=== PATIENT | male | born 1985 | race Asian ===

== ENCOUNTER 2016-10-20 05:12 | Day surgery (SDC) | payer BC ==
[2016-10-19 09:00] VITALS: BMI 22.8
[2016-10-20] MEDS ORDERED: ROPIVACAINE HCL 0.5% 30ML VIAL ONE (07:30)
[2016-10-20] MEDS ORDERED: MIDAZOLAM HCL 2 MG/2 ML SINGLE DOSE VIAL ONE ×2 (07:32)
--- NOTE | 2016-10-20 07:59 | HP ---
Satellite [facility] - Chief Complaint Chief Complaint: right knee pain - Past Medical History Allergies/Adverse Reactions: Allergies Allergy/AdvReac Type Severity Reaction Status Date / Time No Known Drug Allergies Allergy Verified 10/19/16 09:00 - Current Medications Current Medications: Home Medications Medication Instructions Recorded Oxycodone HCl/Acetaminophen 1 - 2 tab PO Q6H #50 tab MDD 8 10/20/16 [Percocet 5-325 mg Tablet -] Satellite Physical Exam - Physical Examination Vital Signs: Vital Signs Period Temp Pulse Resp BP Sys/Quintero Pulse Ox Last 24 Hr 97.7 F-97.7 F 68-68 20-20 119-119/67-67 99 General Appearance: Well Nourished, Well Developed, Alert & Oriented x3 ENT: Clear Lung: Normal air movement Heart: Regular rate & rhythm Extremities: Other (right knee- + swelling, + ttp, decr rom, + mg, + ant draw, + pivot, nvi MRI + acl rupture) Neurological: Intact, Alert, Oriented Satellite Impression/Plan - Impression/Plan Impression: right knee acl rupture Operative Procedure: right knee arthroscopy with ACL reconstruction using allograft Date to be Performed: 10/20/16
[2016-10-20] MEDS ORDERED: SUCCINYLCHOLINE CHLORIDE 200 MG/10 ML VIAL ONE (08:10)
[2016-10-20] MEDS ORDERED: PROPOFOL 20 ML ONE ×2 (08:10)
[2016-10-20] MEDS ORDERED: ceFAZolin SODIUM 1 GM VIAL IVPB ONE (08:18)
[2016-10-20] MEDS ORDERED: DEXAMETHASONE SOD PHOSPHATE 4 MG/1 ML VIAL ONE (08:22)
[2016-10-20] MEDS ORDERED: KETOROLAC TROMETHAMINE 30 MG/1 ML VIAL ONE (08:22)
[2016-10-20] MEDS ORDERED: LIDOCAINE HCL/PF 2% SDV 5ML VIAL ONE (08:22)
[2016-10-20] MEDS ORDERED: ceFAZolin SODIUM 1 GM VIAL ONE ×2 (08:23→11:38)
[2016-10-20] MEDS ORDERED: oxyCODONE HCL 5 MG TABLET PO PRN (08:34)
[2016-10-20] MEDS ORDERED: ONDANSETRON 4 MG/2 ML VIAL IVPUSH PRN (08:34)
[2016-10-20] MEDS ORDERED: LACTATED RINGERS SOLUTION 1,000 ML IV SCH (08:45)
--- NOTE | 2016-10-20 09:26 | OP ---
Operative Note - Note: Operative Date: 10/20/16 ([facility]) Pre-Operative Diagnosis: right knee acl rupture Operation: right knee arthroscopy with ACL reconstruction using allograft, PMM Implants: arthrex graftlink Post-Operative Diagnosis: Other ([facility]) Surgeon: Shayan Centeno Leadership Program Intern: Karthik Patel Anesthesiologist/FACTORY CLERK: Chacha Jain MD Anesthesia: General, Local Specimens Removed: shavings Estimated Blood Loss (mls): 5 Operative Report Dictated: Yes
[2016-10-20] MEDS ORDERED: MEPERIDINE HCL CARPU-JECT 25 MG/1 ML DISP.SYRIN ONE (09:38)
[2016-10-20] MEDS ORDERED: MEPERIDINE HCL CARPU-JECT 25 MG/1 ML DISP.SYRIN IVPUSH ONE ×2 (09:45→09:55)
[2016-10-20] MEDS ORDERED: CEFAZOLIN 1 GM in DEXTROSE 5%-WATER - 50 ML IVPB ONE (11:00)
[2016-10-20 11:48] VITALS: TEMP 97.8
[2016-10-20] MEDS ORDERED: oxyCODONE HCL 5 MG TABLET ONE (12:10)
[2016-10-20 12:59] VITALS: BP 114/56; PULSE 74
--- NOTE | 2016-10-21 11:01 | OP ---
DATE OF OPERATION: 10/20/2016 PREOPERATIVE DIAGNOSIS: Right recurrent anterior cruciate ligament tear. POSTOPERATIVE DIAGNOSIS: Right recurrent anterior cruciate ligament tear, plus medial meniscus tear. PROCEDURE: Right anterior cruciate ligament reconstruction with GraftLink and partial medial meniscectomy. SURGICAL ATTENDING: Shayan Centeno M.D. CROP QUANTITATIVE GENETICIST: GRANT Gonzalez ANESTHESIA: LMA and regional. CLOSURE: A GraftLink and 3-0 nylon. ESTIMATED BLOOD LOSS: Negligible. COMPLICATIONS: None. CONDITION: To recovery room in stable condition. DESCRIPTION OF PROCEDURE: The patient was taken to the operating room on October 20, 2016. Abductor canal block as well as general anesthesia with LMA were administered by the anesthesiologist. IV Kefzol was given prophylactically prior to the case. The right lower extremity was prepped and draped in the usual sterile fashion. The GraftLink was prepared on the back table for use during the case with the appropriate markings and suture preparation. The superolateral and mediolateral and infrapatellar portal sites were made with a 15 blade followed by a blunt trocar. Outflow portal was superomedial, inflow portal and scope were inferolateral, and the working portal was inferomedial. The scope was placed up in the suprapatellar pouch, which was cleaned. The medial and lateral gutters were visualized to be clean. With valgus stress on the knee, the medial compartment was entered and medial meniscus was found to have a small flap tear of its posterior horn, and this was debrided back to smooth stable meniscal tissues with a meniscal biter and an arthroscopic shaver. The medial femoral condyle was run and found to be intact as was the medial tibial plateau. In the figure-of-4 position, the lateral compartment was entered. Lateral meniscus was visualized and found to be intact. Lateral femoral condyle was run and found to be intact, as was the lateral tibial plateau. The undersurface of the patella and trochlea were also visualized to be intact. At 90 degrees, the ACL was visualized to be completely torn and shreded. Its stump was debrided using the shaver and the ArthroCare device. A notchplasty was performed gaining sufficient width and height to perform the procedure and get posteriorly enough for the femoral tunnel position. The old graft sutures were debrided. Using an [id number] guide and using a FlipCutter, a tunnel was drilled in the posterior aspect of the notch as far posterior as possible. This was retro-drilled for a 10-mm tunnel using the FlipCutter. All bone particular was debrided. A shuttle suture was placed via a suture stick down the tunnel and exiting the portal and clipped to itself. Using a tibial alignment jig, the tibial tunnel was also retrograde-drilled for 10 mm just anterior to the PCL. This was done with the FlipCutter. All bone fragments were removed. A suture stick was placed up the tibial side for a shuttle suture as well exiting the inferomedial portal. The GraftLink was then passed into the knee with shuttle sutures pulling the proximal sutures through the femoral tunnel, and the tibial tunnel pulling the tibial sutures into the tibial tunnel. The button was hooked on the femoral cortex and toggled up to the appropriate level. The tibial tunnel sutures were placed around the button and were toggled as well against the tibial cortex achieving excellent tension of the graft. Sutures were cut snug. The knee was taken through a range of motion, found to go full extension, full flexion, with excellent tensioning of the ACL throughout and no impingement on the notch. All residual bone fragments of the knee were debrided using the shaver. The portal sutures were closed using 3-0 nylon suture, and a sterile pressure dressing was applied. Patient was awakened from anesthesia and transferred to recovery room in stable condition. No complications. Estimated blood loss was negligible. Zhane CASTRO/[id number]
--- NOTE | 2016-10-23 13:30 | PATH ---
Surgical Pathology Report Patient Name: RODO GERARDO [facility]. Rec. #: [id number] /Age/Gender: 1985 (Age: 30) / M Account: [id number] Location: [facility] SURGICAL Taken: 10/20/2016 Received: 10/20/2016 Reported: 10/23/2016 Physicians: Shayan Centeno M.D. Specimen(s) Received RIGHT KNEE SHAVINGS Clinical History Right knee ACL tear Final Diagnosis SOFT TISSUE, LEFT KNEE, ARTHROSCOPIC SHAVINGS: SYNOVIUM AND FIBROCARTILAGE WITH MYXOHYALINE DEGENERATION. SMALL FRAGMENTS OF UNREMARKABLE BONE. Electronically Signed Du Sexton M.D. Gross Description Received in formalin, labeled "right knee shavings" is a 6 x 4 x 1 cm aggregate of granados-yellow soft tissue fragments. A commercial representative portion is submitted in one cassette. [facility]/10/20/2016 [facility]/10/20/2016
== END 2016-10-20 12:59 | disposition home or self-care (01) ==
LOC: JASU-SURG 05:12
PROVIDERS: ATTEND Orthopaedic Surgery
PROC: 0YQF4ZZ Repair Right Knee Region, Percutaneous Endoscopic Approach (ICD-10-PCS; 2016-10-20)
PROC: 0SBC4ZZ Excision of Right Knee Joint, Percutaneous Endoscopic Approach (ICD-10-PCS; principal; 2016-10-20 08:00)
DX: S83.511A Sprain of anterior cruciate ligament of right knee, initial encounter (principal); S83.241A Other tear of medial meniscus, current injury, right knee, initial encounter; X58.XXXA Exposure to other specified factors, initial encounter; Y93.9 Activity, unspecified; Y92.9 Unspecified place or not applicable; Y99.9 Unspecified external cause status
CPT/HCPCS: 88304-TC; 94760

== ENCOUNTER 2018-08-09 05:09 | Day surgery (SDC) | payer BC ==
[2018-08-08 08:34] VITALS: BMI 22.0
[2018-08-09] MEDS ORDERED: PROPOFOL 20 ML ONE ×3 (07:44→08:11)
[2018-08-09] MEDS ORDERED: DEXAMETHASONE SOD PHOSPHATE 4 MG/1 ML VIAL ONE (07:44)
[2018-08-09] MEDS ORDERED: MIDAZOLAM HCL 2 MG/2 ML SINGLE DOSE VIAL ONE (07:45)
[2018-08-09] MEDS ORDERED: SUCCINYLCHOLINE CHLORIDE 200 MG/10 ML VIAL ONE (07:49)
--- NOTE | 2018-08-09 08:06 | HP ---
Satellite [facility] - Chief Complaint Chief Complaint: right knee pain History Source: Patient - Past Medical History Allergies/Adverse Reactions: Allergies Allergy/AdvReac Type Severity Reaction Status Date / Time No Known Drug Allergies Allergy Verified 08/09/18 07:13 - Current Medications Current Medications: Home Medications Medication Instructions Recorded Ergocalciferol (Vitamin D2) 2,000 unit PO DAILY 08/08/18 [Vitamin D2] Satellite Physical Exam - Physical Examination Vital Signs: Vital Signs Period Temp Pulse Resp BP Sys/Quintero Pulse Ox Last 24 Hr 97.2 F 72 20 108/60 100 Extremities: Other (+ tenderness over tibial tunnel hardware right knee) Satellite Impression/Plan - Impression/Plan Impression: painful hardware right knee Operative Procedure: VIANCA R knee Date to be Performed: 08/09/18
[2018-08-09] MEDS ORDERED: ceFAZolin SODIUM 1 GM VIAL IVPB ONE (08:15)
[2018-08-09] MEDS ORDERED: ceFAZolin SODIUM 1 GM VIAL ONE ×2 (08:17)
[2018-08-09] MEDS ORDERED: ONDANSETRON 4 MG/2 ML VIAL IVPUSH PRN (08:27)
[2018-08-09] MEDS ORDERED: oxyCODONE HCL 5 MG TABLET PO PRN (08:27)
[2018-08-09] MEDS ORDERED: LACTATED RINGERS SOLUTION 1,000 ML IV SCH (08:30)
[2018-08-09] MEDS ORDERED: KETOROLAC TROMETHAMINE 30 MG/1 ML VIAL ONE (08:32)
--- NOTE | 2018-08-09 08:38 | OP ---
Operative Note - Note: Operative Date: 08/09/18 ([facility]) Pre-Operative Diagnosis: right knee painful hardware Operation: right proximal tibia removal of hardware Post-Operative Diagnosis: Same as Pre-op Surgeon: Shayan Centeno Anesthesiologist/DAYCARE MANAGER: Shravan Cespedes Anesthesia: General, Local Specimens Removed: endobutton Estimated Blood Loss (mls): 5 Operative Report Dictated: Yes
--- NOTE | 2018-08-09 09:14 | OP ---
DATE OF OPERATION: 08/09/2018 PREOPERATIVE DIAGNOSIS: Painful hardware, right knee. POSTOPERATIVE DIAGNOSIS: Painful hardware, right knee. PROCEDURE: Removal of hardware and bone grafting. SURGICAL ATTENDING: Shayan Centeno MD ANESTHESIA: LMA. CLOSURE: Vicryl 2-0 subcutaneous, 3-0 nylon to skin. ESTIMATED BLOOD LOSS: Less than 10 mL. COMPLICATIONS: None. CONDITION: Stable. DESCRIPTION OF PROCEDURE: Patient taken to the operating room. General anesthesia with LMA was administered by the anesthesiologist. Right lower extremity was prepped and draped in the usual sterile fashion. I used the previously made incision which was transverse over the proximal medial tibia for this surgery as well. Hemostasis was achieved with Bovie cautery. Sharp dissection was carried down to the level of the palpable hardware beneath the incision. This was a plastic wedge device that was used from his first ACL. I used a rongeur and it came out in total, leaving a tunnel. This tunnel was curetted and filled with StimuBlast. Just lateral to that my button from my ACL reconstruction allograft. That button was cut from the sutures underneath, and the button was removed as well. Wound was irrigated. Subcutaneous was closed with 2-0 Vicryl, 3-0 nylon for skin. Aquacel dressing was applied. Post removal patient still had excellent stability, negative Oma, negative pivot shift, negative anterior drawer under anesthesia. Patient awakened from anesthesia and transferred to recovery room in stable condition. No complications. Estimated blood loss negligible. SHAYAN CENTENO M.D. GAIL/[id number]
[2018-08-09] MEDS ORDERED: ACETAMINOPHEN INJECTION 100 ML IVPB ONE (09:20)
[2018-08-09] MEDS ORDERED: ACETAMINOPHEN 1000 MG/100 ML VIAL (NON FORMULARY) IVPB ONE ×2 (09:25→10:30)
[2018-08-09] MEDS ORDERED: oxyCODONE HCL 5 MG TABLET ONE (11:03)
[2018-08-09] MEDS ORDERED: oxyCODONE HCL 5 MG TABLET PO ONE (11:07)
[2018-08-09 11:10] VITALS: TEMP 97.7
[2018-08-09 11:41] VITALS: BP 109/66; PULSE 66
--- NOTE | 2018-08-12 19:31 | PATH ---
Surgical Pathology Report Patient Name: RODO GERARDO Med. Rec. #: [id number] /Age/Gender: 1985 (Age: 32) / M Account: [id number] Location: [facility] SURGICAL Taken: 08/09/2018 Received: 08/09/2018 Reported: 08/12/2018 Physicians: Shayan Centeno M.D. Specimen(s) Received HARDWARE Clinical History Removal hardware, right proximal tibia Final Diagnosis OLD HARDWARE, REMOVAL: SURGICAL HARDWARE. MACROSCOPIC DIAGNOSIS. Electronically Signed Nataliia Hudson M.D. Gross Description Received fresh labeled "old hardware" is a granados plastic hardware measuring 3 cm in length with a 0.7 cm diameter, and small metal hardware measuring 1 x 1 x 0.3 cm. No soft tissue identified, gross only. [facility]/08/09/2018 [facility]/08/09/2018
== END 2018-08-09 11:41 | disposition home or self-care (01) ==
LOC: JASU-SURG 05:09
PROVIDERS: ATTEND Orthopaedic Surgery
PROC: 0SP904Z Removal of Internal Fixation Device from Right Hip Joint, Open Approach (ICD-10-PCS; principal; 2018-08-09 08:00)
DX: T84.84XA Pain due to internal orthopedic prosthetic devices, implants and grafts, initial encounter (principal); Y79.3 Surgical instruments, materials and orthopedic devices (including sutures) associated with adverse incidents; Y92.9 Unspecified place or not applicable
CPT/HCPCS: 73560-TC-RT-FY; 88300-TC; 94760; J0131